=== PATIENT | female | born 1995 | race African-American/Black ===

== ENCOUNTER 2016-07-11 06:49 | Emergency (ER) | payer BC, OTHER ==
[~2016-07-11] VITALS: Ht 162.6 cm; Wt 60.0 kg
[~2016-07-11 06:49] MED LIST: ALBU8I INH
[2016-07-11 06:51] VITALS: BP 119/76; PULSE 63; RESP 16; TEMP 98.1; O2SAT 100
--- NOTE | 2016-07-11 07:24 | PD ---
HPI Chief Complaint: Related Problem Time Seen by Provider: 07:14 Travel History International Travel<30 days: No Contact w/Intl Traveler<30days: No Traveled to known affect area: No History of Present Illness HPI 21yo F who is is here with vaginal bleeding and lower abdominal cramping today. Pt states LMP is 1 month ago and found out she was last week. Denies any fever, chest pain, sob, urinary complaints. PFSH Past Medical History Asthma: Yes ?: Past Surgical History Surgical History: No Previous Surgery Social History Alcohol Use: No Tobacco Use: No Substance Use: No Allergies-Medications (Allergen,Severity, Reaction): Coded Allergies: Amoxicillin (Verified Allergy, Severe, 07/11/16) RASH Reported Meds & Prescriptions Reported Meds & Active Scripts Active Reported Proair Hfa 8.5 GM Inh (Albuterol Sulfate) 90 Mcg/Act Aer 2 Puff INH Q4-6H PRN 108 mcg/actuation Review of Systems Except as stated in HPI: all other systems reviewed are Neg Physical Exam Narrative GENERAL: 21yo F in mild distress. SKIN: Focused skin assessment warm/dry. HEAD: Atraumatic. Normocephalic. CARDIOVASCULAR: Regular rate and rhythm. No murmur appreciated. RESPIRATORY: No accessory muscle use. Clear to auscultation. Breath sounds equal bilaterally. GASTROINTESTINAL: Abdomen soft, +TTP lower abdomen. No rebound tenderness or guarding. PELVIC: +Blood in vaginal vault. Cervical os closed. No CMT or adnexal tenderness bilaterally. MUSCULOSKELETAL: No obvious deformities. No clubbing. No cyanosis. No edema. NEUROLOGICAL: Awake and alert. No obvious cranial nerve deficits. Motor grossly within normal limits. Normal speech. PSYCHIATRIC: Appropriate mood and affect; insight and judgment normal. Data Data Last Documented VS Vital Signs Date Time Temp Pulse Resp B/P Pulse Ox O2 Delivery O2 Flow Rate FiO2 07/11/16 09:24 78 18 114/73 99 Room Air 07/11/16 06:51 98.1 Orders Basic Metabolic Panel (Bmp) (07/11/16 07:20) Beta Hcg (Quant/Titer) (07/11/16 07:20) Complete Blood Count With Diff (07/11/16 07:20) Lipase (07/11/16 07:20) Prothrombin Time / Inr (Pt) (07/11/16 07:20) Act Partial Throm Time (Ptt) (07/11/16 07:20) Urinalysis - C+S If Indicated (07/11/16 07:20) Iv Access Insert/Monitor (07/11/16 07:20) Ecg Monitoring (07/11/16 07:20) Oximetry (07/11/16 07:20) Sodium Chloride 0.9% Flush (Ns Flush) (07/11/16 07:30) Type And Screen (07/11/16 07:20) Ondansetron Inj (Zofran Inj) (07/11/16 07:30) Acetaminophen (Tylenol) (07/11/16 07:30) Us Pelvis (Ques Pr/Ect)W Trans (07/11/16 ) Labs Laboratory Tests Test 07/11/16 07:35 White Blood Count 7.4 TH/MM3 Red Blood Count 3.94 MIL/MM3 Hemoglobin 11.7 GM/DL Hematocrit 35.0 % Mean Corpuscular Volume 88.9 FL Mean Corpuscular Hemoglobin 29.8 PG Mean Corpuscular Hemoglobin 33.6 % Concent Red Cell Distribution Width 14.5 % Platelet Count 297 TH/MM3 Mean Platelet Volume 8.9 FL Neutrophils (%) (Auto) 55.9 % Lymphocytes (%) (Auto) 35.2 % Monocytes (%) (Auto) 6.4 % Eosinophils (%) (Auto) 1.5 % Basophils (%) (Auto) 1.0 % Neutrophils # (Auto) 4.1 TH/MM3 Lymphocytes # (Auto) 2.6 TH/MM3 Monocytes # (Auto) 0.5 TH/MM3 Eosinophils # (Auto) 0.1 TH/MM3 Basophils # (Auto) 0.1 TH/MM3 CBC Comment DIFF FINAL Differential Comment Prothrombin Time 10.5 SEC Prothromb Time International 1.0 RATIO Ratio Activated Partial 25.7 SEC Thromboplast Time Urine Color YELLOW Urine Turbidity CLEAR Urine pH 6.0 Urine Specific [place] 1.024 Urine Protein NEG mg/dL Urine Glucose (UA) NEG mg/dL Urine Ketones NEG mg/dL Urine Occult Blood LARGE Urine Nitrite NEG Urine Bilirubin NEG Urine Urobilinogen 2.0 MG/DL Urine Leukocyte Esterase NEG Urine RBC /hpf Urine WBC LESS THAN 1 /hpf Urine Squamous Epithelial 2 /hpf Cells Urine Mucus FEW /lpf Microscopic Urinalysis Comment CULT NOT INDICATED Sodium Level 141 MEQ/L Potassium Level 4.2 MEQ/L Chloride Level 108 MEQ/L Carbon Dioxide Level 25.1 MEQ/L Anion Gap 8 MEQ/L Blood Urea Nitrogen 12 MG/DL Creatinine 0.97 MG/DL Estimat Glomerular Filtration 89 ML/MIN Rate Random Glucose 83 MG/DL Calcium Level 8.4 MG/DL Lipase 213 U/L Human Chorionic Gonadotropin, 5828 MIU/ML Quant Blood Type O POSITIVE Antibody Screen NEGATIVE Blood Bank Comment MDM Medical Decision Making Medical Screen Exam Complete: Yes Emergency Medical Condition: Yes Differential Diagnosis Threatened vs. complete vs. ectopic Narrative Course 21yo F with vaginal bleeding. Pt is O positive. LMP 4 weeks ago. Labs reviewed, no leukocytosis. H/H stable. bHCG 5828. UA showed large blood. TVUS showed no evidence of intrauterine gestation. Complex mixed echogenicity that is nonspecific in right ovary. Tiny cyst in left ovary. Impression is complete . Instructed pt to follow up with OBGYN for repeat bHCG to make sure it goes down. Return precautions given. Diagnosis Primary Impression: Complete Patient Instructions: General Instructions Departure Forms: Tests/Procedures Additional Instructions: Please follow up with OBGYN in 2 days to ensure hormone is trending down. Return to the ED if symptoms worsen. Med/Other Pt SpecificInfo: Prescription(s) given Scripts Acetaminophen (Acetaminophen Extra Strength)500 Mg Evo173 Mg PO Q6H PRN (PAIN SCALE 1 TO 4) #20 TAB Ref 0 Prov:Siena Ruano DO 07/11/16 Disposition: 01 DISCHARGE HOME Condition: Stable Siena Ruano DO Jul 11, 2016 07:24
[2016-07-11 07:25] VITALS: O2SAT 99
[2016-07-11] MEDS ORDERED: ONDANSETRON HCL 4 MG/2 ML VIAL IV PUSH ONE (07:30)
[2016-07-11] MEDS ORDERED: ACETAMINOPHEN 325 MG TAB PO ONE (07:30)
[2016-07-11] MEDS ORDERED: SODIUM CHLORIDE 0.9% FLUSH 10 ML FLUSH IV FLUSH PRN (07:30)
[2016-07-11 07:55] LABS: AUTOMATED NEUTROPHIL # 4.1 TH/MM3 (1.8-7.7); BASOPHIL # 0.1 TH/MM3 (0-0.2); EOSINOPHIL # 0.1 TH/MM3 (0-0.4); EOSINOPHIL % 1.5 % (0.0-4.0); HEMO FLAGS DIFF FINAL; LYMPH % 35.2 % (9.0-44.0); LYMPHOCYTE # 2.6 TH/MM3 (1.0-4.8); MEAN CELL VOLUME 88.9 FL (80.0-100.0); MEAN CORPUSCULAR HEMOGLOBIN 29.8 PG (27.0-34.0); MEAN CORPUSCULAR HGB CONC 33.6 % (32.0-36.0); MONO % 6.4 % (0.0-8.0); NEUT % 55.9 % (16.0-70.0); PLATELET COUNT 297 TH/MM3 (150-450); RED BLOOD COUNT 3.94 MIL/MM3 (4.00-5.30); RED CELL DISTRIBUTION WIDTH 14.5 % (11.6-17.2); WHITE BLOOD COUNT 7.4 TH/MM3 (4.0-11.0)
[2016-07-11 08:04] LABS: APTT (PATIENT) 25.7 SEC (24.3-30.1); PROTHROMBIN TIME - PATIENT 10.5 SEC (9.8-11.6)
[2016-07-11 08:07] LABS: BLOOD, URINE LARGE (NEG); COMMENT (UR) CULT NOT INDICATED; CULTURE IF INDICATED CULT NOT INDICATED; GLUCOSE,URINE NEG (NEG); KETONE, URINE NEG (NEG); MUCUS URINE FEW /lpf (OCC); NITRITE,URINE NEG (NEG); SQUAMOUS EPITHELIAL CELL URINE 2 /hpf (0-5); URINE COLOR YELLOW (YELLW/STRAW)
[2016-07-11 08:15] LABS: BICARBONATE 25.1 MEQ/L (21.0-32.0); POTASSIUM 4.2 MEQ/L (3.5-5.1)
[2016-07-11] MEDS ORDERED: ALBUAER3 INH (09:01)
[2016-07-11 09:24] VITALS: BP 114/73; PULSE 78; RESP 18; O2SAT 99
--- NOTE | 2016-07-11 09:38 | RADRPT ---
EXAM DATE/TIME: 07/11/2016 08:47 [facility] COMPARISON: No previous studies available for comparison. INDICATIONS : Vaginal bleeding and pelvic pain. LAB(S): Beta-hC,828 MEDICAL HISTORY : . Vaginal bleeding. Abdominal cramping. SURGICAL HISTORY : None. ENCOUNTER: Initial ACUITY: 1 day PAIN SCORE: 4/10 LOCATION: Bilateral pelvis MEASUREMENTS: UTERUS: 8.2 x 4.0 x 6.3 cm ENDOMETRIAL STRIPE: 3 mm RIGHT OVARY: 3.2 x 2.4 x 3.6 cm LEFT OVARY: 3.9 x 1.6 x 3.0 cm FREE FLUID: Yes cul-de-sac. CROWN RUMP LENGTH: Not visualized. = WKS DAYS FHR: Not visualized. BPM FINDINGS: UTERUS: No intrauterine gestation. RIGHT OVARY: Complex mixed echogenicity slightly greater than 2 cm area within the right ovary, nonspecific. LEFT OVARY: Tiny simple appearing cyst MISCELLANEOUS: Small volume of free fluid CONCLUSION: No evidence of intrauterine gestation. Earnest Mccormick MD on July 11, 2016 at 9:31 Board Certified Radiologist. This report was verified electronically.
[2016-07-11] MEDS ORDERED: ACET500T36 PO (09:57)
== END 2016-07-11 10:27 | disposition home or self-care (01) ==
LOC: NEPC 06:49
DX: O03.9 Complete or unspecified spontaneous abortion without complication (principal); R10.30 Lower abdominal pain, unspecified
CPT/HCPCS: 76700; 76817; 80048; 81001; 83690; 84702; 85025; 85610; 85730; 86850; 86900; 86901; 96374; 99284; J2405

== ENCOUNTER 2016-07-15 09:39 | Emergency (ER) | payer OTHER ==
[~2016-07-15] VITALS: Ht 162.6 cm; Wt 61.5 kg
[~2016-07-15 09:39] MED LIST changes: +ACET500T36 PO; -ALBU8I INH; +ALBUAER3 INH
[2016-07-15 09:41] VITALS: BP 110/55; PULSE 120; RESP 28; TEMP 97.8; O2SAT 99
[2016-07-15] MEDS ORDERED: SODIUM CHLOR 0.9% 1000 ML INJ 1,000 ML IV SCH (10:28)
--- NOTE | 2016-07-15 10:37 | PD ---
HPI Chief Complaint: Abdominal Pain Time Seen by Provider: 10:08 Travel History International Travel<30 days: No Contact w/Intl Traveler<30days: No Traveled to known affect area: No History of Present Illness HPI 21-year-old female 1 para 0 last menstruation period a month ago complains of severe abdominal pain. Patient was seen in emergency room 4 days ago for vaginal bleeding and low abdominal pain. Beta-hCG 5828. Pelvic ultrasound shows no evidence of intrauterine . Patient was discharged home with instruction to follow-up local [employer]. Patient states that she is not having abdominal pain yesterday and got worse today. Patient denies any nausea vomiting diarrhea. Patient denies any dysuria or frequency. Patient states that the vaginal bleeding stopped 4 days ago. On a scale of 1-10 the pain is a 10. PFSH Past Medical History Hx Anticoagulant Therapy: No Asthma: Yes Cardiovascular Problems: No Chemotherapy: No Cerebrovascular Accident: No Diabetes: No Respiratory: Yes (ASTHMA) ?: Unknown LMP: HAD A MISCARRIAGE ON SUNDAY Social History Alcohol Use: No Tobacco Use: No Substance Use: No Allergies-Medications (Allergen,Severity, Reaction): Coded Allergies: Amoxicillin (Verified Allergy, Severe, 07/15/16) RASH Reported Meds & Prescriptions Reported Meds & Active Scripts Active Acetaminophen Extra Strength (Acetaminophen) 500 Mg Tab 500 Mg PO Q6H PRN Reported Proair Hfa 8.5 GM Inh (Albuterol Sulfate) 90 Mcg/Act Aer 2 Puff INH Q4-6H PRN 108 mcg/actuation Review of Systems General / Constitutional: No: Fever Eyes: No: Visual changes HENT: No: Headaches Cardiovascular: No: Chest Pain or Discomfort Respiratory: No: Shortness of Breath Gastrointestinal: Positive: Abdominal Pain Genitourinary: No: Dysuria Musculoskeletal: No: Pain Skin: No Rash Neurologic: No: Weakness Psychiatric: No: Depression Endocrine: No: Polydipsia Hematologic/Lymphatic: No: Easy Bruising Physical Exam Narrative GENERAL: Well-nourished, well-developed patient. SKIN: Focused skin assessment warm/dry. HEAD: Normocephalic. EYES: No scleral icterus. No injection or drainage. NECK: Supple, trachea midline. No JVD or lymphadenopathy. CARDIOVASCULAR: Regular rate and rhythm without murmurs, gallops, or rubs. RESPIRATORY: Breath sounds equal bilaterally. No accessory muscle use. GASTROINTESTINAL: Abdomen nondistended. Patient has moderate diffuse tenderness over the abdomen with positive rebound and guarding. MUSCULOSKELETAL: No cyanosis, or edema. BACK: Nontender without obvious deformity. No CVA tenderness. Neurologic exam normal. Data Data Last Documented VS Vital Signs Date Time Temp Pulse Resp B/P Pulse Ox O2 Delivery O2 Flow Rate FiO2 07/15/16 10:42 97 Nasal Cannula 2 07/15/16 10:03 18 07/15/16 09:41 97.8 120 110/55 Orders Complete Blood Count With Diff (07/15/16 10:28) Comprehensive Metabolic Panel (07/15/16 10:28) Prothrombin Time / Inr (Pt) (07/15/16 10:28) Act Partial Throm Time (Ptt) (07/15/16 10:28) Iv Access Insert/Monitor (07/15/16 10:28) Ecg Monitoring (07/15/16 10:28) Oximetry (07/15/16 10:28) Sodium Chlor 0.9% 1000 Ml Inj (Ns 1000 M (07/15/16 10:28) Type And Screen (07/15/16 10:28) Red Blood Cells (Rbc) (07/15/16 10:28) Us Pelvis (Ques Pr/Ect)W Trans (07/15/16 10:31) Beta Hcg (Quant/Titer) (07/15/16 10:48) MDM Medical Decision Making Medical Screen Exam Complete: Yes Emergency Medical Condition: Yes Differential Diagnosis Differential diagnosis including ruptured ectopic , UTI, pyelonephritis , nephrolithiasis, colitis, appendicitis. Narrative Course 21-year-old female with lower abdominal pain. Beta-hCG positive and pelvic ultrasound done 4 days ago did not show any intrauterine . Normal saline solution 1 L IV bolus. Blood type and cross. ED OB was called immediately. Stat pelvic ultrasound ordered. Diagnosis Primary Impression: Ruptured ectopic Admitting Information Admitting Physician Requests: Admit Cody Whitlock MD Jul 15, 2016 10:37
[2016-07-15 10:42] VITALS: O2SAT 97
[2016-07-15 11:09] LABS: AUTOMATED NEUTROPHIL # 22.4 TH/MM3 (1.8-7.7); BASOPHIL % 0.1 % (0.0-2.0); HEMATOCRIT 31.4 % (35.0-46.0); LYMPH % 7.2 % (9.0-44.0); LYMPHOCYTE # 1.8 TH/MM3 (1.0-4.8); MEAN CORPUSCULAR HEMOGLOBIN 28.8 PG (27.0-34.0); MEAN CORPUSCULAR HGB CONC 31.6 % (32.0-36.0); MONO % 3.2 % (0.0-8.0); NEUT % 89.5 % (16.0-70.0); PLATELET COUNT 405 TH/MM3 (150-450); RED BLOOD COUNT 3.44 MIL/MM3 (4.00-5.30); RED CELL DISTRIBUTION WIDTH 14.5 % (11.6-17.2)
[2016-07-15 11:11] LABS: HEMO FLAGS AUTO DIFF
[2016-07-15 11:25] LABS: APTT (PATIENT) 20.9 SEC (24.3-30.1); PROTHROMBIN TIME - PATIENT 11.2 SEC (9.8-11.6)
--- NOTE | 2016-07-15 11:31 | RADRPT ---
EXAM DATE/TIME: 07/15/2016 10:41 [facility] COMPARISON: US PELVIS (QUEST PREG/ECTOPIC) W/TRANSVAG, July 11, 2016, 8:47. INDICATIONS : Severe pelvic pain and bleeding. LAB(S): Beta-hC,828 from 07/11/16 MEDICAL HISTORY : . Asthma. SURGICAL HISTORY : None. ENCOUNTER: Subsequent ACUITY: 3 days PAIN SCORE: 10/10 LOCATION: Bilateral pelvis MEASUREMENTS: LEFT OVARY: 3.9 x 2.1 x 2.4 cm UTERUS: 9.9 x 4.4 x 5.7 cm ENDOMETRIAL STRIPE: 9 mm RIGHT OVARY: Non-visualized FREE FLUID: Yes Bilateral adnexas, cul-de-sac CROWN RUMP LENGTH: Non-visualized FINDINGS: This is a significantly abnormal exam with significant changes as compared to the exam of July 11. UTERUS: The myometrium has homogeneous echotexture without mass. No evidence of intrauterine . RIGHT OVARY: Not visualized. LEFT OVARY: Ovary contains no mass or significant cystic lesion. MISCELLANEOUS: There is a large amount of free fluid identified within the pelvis which has significantly increased as compared to the prior exam. There is a large amount of a vascular appearing echogenic debris ident ified within the posterior cul-de-sac which is also a new finding and highly concerning for a rupture d ectopic. The referring physician will be made when these findings. CONCLUSION: Significantly abnormal exam with multiple new findings of large amount of free fluid as well as a vas cular echogenic debris identified within the posterior cul-de-sac concerning for ruptured ectopic pre gnancy. No evidence of intrauterine . A normal right ovary is not visualized.. Adriane Archer MD on July 15, 2016 at 11:23 Board Certified Radiologist. This report was verified electronically.
[2016-07-15 11:34] LABS: ALKALINE PHOSPHATASE 49 U/L (45-117); TOTAL BILIRUBIN ADULT 0.4 MG/DL (0.2-1.0)
[2016-07-15 11:37] LABS: ALT (GPT) 18 U/L (9-42); ANION GAP 17 MEQ/L (5-15); AST (GOT) 21 U/L (16-38); BICARBONATE 19.3 MEQ/L (21.0-32.0); BLOOD UREA NITROGEN 18 MG/DL (7-18); CHLORIDE 102 MEQ/L (98-107); GLOMERULAR FILTRATION RATE 50 ML/MIN (>89); POTASSIUM 3.6 MEQ/L (3.5-5.1); SODIUM (NA) 138 MEQ/L (136-145)
[2016-07-15] MEDS ORDERED: LACTATED RINGER'S 1000 ML INJ 1,000 ML IV SCH (11:41)
[2016-07-15] MEDS ORDERED: SODIUM CHLORIDE 0.9% FLUSH 10 ML FLUSH IV FLUSH PRN (11:45)
[2016-07-15] MEDS ORDERED: CITRIC ACID-SODIUM CITRATE LIQ 30 ML UDC PO SCH (11:45)
[2016-07-15 11:48] LABS: BANDS 5 % (0-6); BETA HCG QUANT 4377 MIU/ML (0-5); NEUTROPHIL # MANUAL DIFF 22.3 TH/MM3 (1.8-7.7); POLYS (SEG NEUTROPHILS) 84 % (16-70); WBC DIFF SAMPLE 100
[2016-07-15 11:50] LABS: OVALOCYTES 1+ (NORMAL); PLATELET ESTIMATE SMEAR NORMAL (NORMAL); PLATELET MORPHOLOGY NORMAL (NORMAL); SCAN/DIFF FINAL DIFF MANUAL
[2016-07-15] MEDS ORDERED: ONDANSETRON HCL 4 MG/2 ML VIAL IV PUSH ONE (12:00)
[2016-07-15] MEDS ORDERED: PROPOFOL 200 MG/20 ML AMP IV ONE (12:00)
[2016-07-15] MEDS ORDERED: NORMOSOL R INJ 3,000 ML IV ONE (12:00)
[2016-07-15] MEDS ORDERED: PHENYLEPH/NS 1000 MCG/10 ML SYR IV ONE (12:00)
[2016-07-15] MEDS ORDERED: NEOSTIGMINE 3 MG/3 ML SYR IV ONE (12:00)
[2016-07-15] MEDS ORDERED: KETAMINE HCL 500 MG/5 ML VIAL ONE (12:04)
--- NOTE | 2016-07-15 12:08 | HHI.HP ---
HPI Chief Complaint abdominal pain Date Seen: Jul 15, 2016 Time Seen: 11:02 Travel History International Travel<30 Days: No Contact w/Intl Traveler<30Days: No Known Affected Area: No History of Present Illness HPI This is a 21y/o with LMP about 1 month ago who initially presented to the ED on 07/11/16 and was diagnosed with a complete ab with Hcg of 5828. Pt presents again today with excruciating pain in her lower abdominal associated with nausea/vomiting. She states the pain is severe 10/10 with no alleviating factors. Last solid food intake was 8pm, has been sipping water and gatorade since 0300. Para: 0 : 1 Last Menstrual Period: Jun 14, 2016 Miscarriage: 0 : 0 History Past Medical History Narrative Medical Asthma Past Surgical History Surgical History: No Previous Surgery Family History Family History: Negative Social History Alcohol Use: No Tobacco Use: No Substance Abuse: No Allergies-Medications (Allergen,Severity, Reaction): Coded Allergies: Amoxicillin (Verified Allergy, Severe, 07/15/16) RASH Home Meds Active Scripts Acetaminophen (Acetaminophen Extra Strength)500 Mg Nto036 Mg PO Q6H PRN (PAIN SCALE 1 TO 4) #20 TAB Ref 0 Prov:Siena Ruano DO 07/11/16 Reported Medications Albuterol 8.5 GM Inh (Proair Hfa 8.5 GM Inh)90 Mcg/Act Aer2 Puff INH Q4-6H PRN ( SHORTNESS OF BREATH) #1 INHALER Ref 0 108 mcg/actuation 07/11/16 Review of Systems Except as stated in HPI: all other systems reviewed are Neg Physical Exam Vital Signs Date Time Temp Pulse Resp B/P Pulse Ox O2 Delivery O2 Flow Rate FiO2 07/15/16 10:42 97 Nasal Cannula 2 07/15/16 10:03 18 07/15/16 09:41 97.8 120 28 110/55 99 Room Air Narrative GENERAL: Well-nourished, well-developed patient. SKIN: Warm and dry. HEAD: Normocephalic and atraumatic. EYES: No scleral icterus. No injection or drainage. ENT: No nasal drainage noted. Mucous membranes pink. Airway patent. NECK: Supple, trachea midline. No JVD. CARDIOVASCULAR: Regular rate and rhythm without murmurs, gallops, or rubs. RESPIRATORY: Breath sounds equal bilaterally. No accessory muscle use. BREASTS: Bilateral exam showed no masses , no retractions, no nipple discharge. ABDOMEN/GI: +bs, + rebound/guarding, tender to minimal palpation GENITOURINARY: deferred due to pt discomfort EXTREMITIES: No cyanosis or edema. BACK: Nontender without obvious deformity. No CVA tenderness. NEUROLOGICAL: Awake and alert. Motor and sensory grossly within normal limits. Five out of 5 muscle strength in all muscle groups. Normal speech. U/s official 07/15/16 c/w ruptured ectopic with free fluid and clot in the cul d sac Data Data Vital Signs Reviewed: Yes Orders Complete Blood Count With Diff (07/15/16 10:28) Comprehensive Metabolic Panel (07/15/16 10:28) Prothrombin Time / Inr (Pt) (07/15/16 10:28) Act Partial Throm Time (Ptt) (07/15/16 10:28) Iv Access Insert/Monitor (07/15/16 10:28) Ecg Monitoring (07/15/16 10:28) Oximetry (07/15/16 10:28) Sodium Chlor 0.9% 1000 Ml Inj (Ns 1000 M (07/15/16 10:28) Type And Screen (07/15/16 10:28) Red Blood Cells (Rbc) (07/15/16 10:28) Us Pelvis (Ques Pr/Ect)W Trans (07/15/16 10:31) Beta Hcg (Quant/Titer) (07/15/16 10:48) Admit Order (Ed Use Only) (07/15/16 11:06) Diet Npo (07/15/16 Lunch) ^ Preps (07/15/16 11:41) Sodium Chloride 0.9% Flush (Ns Flush) (07/15/16 11:45) Citric Acid-Sodium Citrate Liq (Bicitra (07/15/16 11:45) Lactated Ringer's 1000 Ml Inj (Lr 1000 M (07/15/16 11:41) Sodium Chloride 0.9% Flush (Ns Flush) (07/15/16 21:00) Cefazolin Inj (Ancef Inj) (07/15/16 12:00) Labs Laboratory Tests Test 07/15/16 10:38 White Blood Count 25.0 TH/MM3 Red Blood Count 3.44 MIL/MM3 Hemoglobin 9.9 GM/DL Hematocrit 31.4 % Mean Corpuscular Volume 91.0 FL Mean Corpuscular Hemoglobin 28.8 PG Mean Corpuscular Hemoglobin 31.6 % Concent Red Cell Distribution Width 14.5 % Platelet Count 405 TH/MM3 Mean Platelet Volume 9.7 FL Neutrophils (%) (Auto) 89.5 % Lymphocytes (%) (Auto) 7.2 % Monocytes (%) (Auto) 3.2 % Eosinophils (%) (Auto) 0.0 % Basophils (%) (Auto) 0.1 % Neutrophils # (Auto) 22.4 TH/MM3 Lymphocytes # (Auto) 1.8 TH/MM3 Monocytes # (Auto) 0.8 TH/MM3 Eosinophils # (Auto) 0.0 TH/MM3 Basophils # (Auto) 0.0 TH/MM3 CBC Comment AUTO DIFF Differential Total Cells 100 Counted Neutrophils % (Manual) 84 % Band Neutrophils % 5 % Lymphocytes % 6 % Monocytes % 5 % Neutrophils # (Manual) 22.3 TH/MM3 Differential Comment FINAL DIFF MANUAL Platelet Estimate NORMAL Platelet Morphology Comment NORMAL Ovalocytes 1+ Prothrombin Time 11.2 SEC Prothromb Time International 1.0 RATIO Ratio Activated Partial 20.9 SEC Thromboplast Time Sodium Level 138 MEQ/L Potassium Level 3.6 MEQ/L Chloride Level 102 MEQ/L Carbon Dioxide Level 19.3 MEQ/L Anion Gap 17 MEQ/L Blood Urea Nitrogen 18 MG/DL Creatinine 1.58 MG/DL Estimat Glomerular Filtration 50 ML/MIN Rate Random Glucose 259 MG/DL Calcium Level 8.3 MG/DL Total Bilirubin 0.4 MG/DL Aspartate Amino Transf 21 U/L (AST/SGOT) Alanine Aminotransferase 18 U/L (ALT/SGPT) Alkaline Phosphatase 49 U/L Total Protein 6.3 GM/DL Albumin 3.1 GM/DL Human Chorionic Gonadotropin, 4377 MIU/ML Quant Blood Type O POSITIVE Antibody Screen NEGATIVE Crossmatch Leukocyte-Reduced Red Blood Cells Blood Bank Comment Laboratory Tests Test 07/15/16 10:38 White Blood Count 25.0 TH/MM3 Red Blood Count 3.44 MIL/MM3 Hemoglobin 9.9 GM/DL Hematocrit 31.4 % Mean Corpuscular Volume 91.0 FL Mean Corpuscular Hemoglobin 28.8 PG Mean Corpuscular Hemoglobin 31.6 % Concent Red Cell Distribution Width 14.5 % Platelet Count 405 TH/MM3 Mean Platelet Volume 9.7 FL Neutrophils (%) (Auto) 89.5 % Lymphocytes (%) (Auto) 7.2 % Monocytes (%) (Auto) 3.2 % Eosinophils (%) (Auto) 0.0 % Basophils (%) (Auto) 0.1 % Neutrophils # (Auto) 22.4 TH/MM3 Lymphocytes # (Auto) 1.8 TH/MM3 Monocytes # (Auto) 0.8 TH/MM3 Eosinophils # (Auto) 0.0 TH/MM3 Basophils # (Auto) 0.0 TH/MM3 CBC Comment AUTO DIFF Differential Total Cells 100 Counted Neutrophils % (Manual) 84 % Band Neutrophils % 5 % Lymphocytes % 6 % Monocytes % 5 % Neutrophils # (Manual) 22.3 TH/MM3 Differential Comment FINAL DIFF MANUAL Platelet Estimate NORMAL Platelet Morphology Comment NORMAL Ovalocytes 1+ Prothrombin Time 11.2 SEC Prothromb Time International 1.0 RATIO Ratio Activated Partial 20.9 SEC Thromboplast Time Sodium Level 138 MEQ/L Potassium Level 3.6 MEQ/L Chloride Level 102 MEQ/L Carbon Dioxide Level 19.3 MEQ/L Anion Gap 17 MEQ/L Blood Urea Nitrogen 18 MG/DL Creatinine 1.58 MG/DL Estimat Glomerular Filtration 50 ML/MIN Rate Random Glucose 259 MG/DL Calcium Level 8.3 MG/DL Total Bilirubin 0.4 MG/DL Aspartate Amino Transf 21 U/L (AST/SGOT) Alanine Aminotransferase 18 U/L (ALT/SGPT) Alkaline Phosphatase 49 U/L Total Protein 6.3 GM/DL Albumin 3.1 GM/DL Human Chorionic Gonadotropin, 4377 MIU/ML Quant Blood Type O POSITIVE Antibody Screen NEGATIVE Crossmatch Leukocyte-Reduced Red Blood Cells Blood Bank Comment Laboratory Tests Test 07/15/16 10:38 White Blood Count 25.0 Red Blood Count 3.44 Hemoglobin 9.9 Hematocrit 31.4 Mean Corpuscular Volume 91.0 Mean Corpuscular Hemoglobin 28.8 Mean Corpuscular Hemoglobin 31.6 Concent Red Cell Distribution Width 14.5 Platelet Count 405 Mean Platelet Volume 9.7 Neutrophils (%) (Auto) 89.5 Lymphocytes (%) (Auto) 7.2 Monocytes (%) (Auto) 3.2 Eosinophils (%) (Auto) 0.0 Basophils (%) (Auto) 0.1 Neutrophils # (Auto) 22.4 Lymphocytes # (Auto) 1.8 Monocytes # (Auto) 0.8 Eosinophils # (Auto) 0.0 Basophils # (Auto) 0.0 CBC Comment AUTO DIFF Differential Total Cells 100 Counted Neutrophils % (Manual) 84 Band Neutrophils % 5 Lymphocytes % 6 Monocytes % 5 Neutrophils # (Manual) 22.3 Differential Comment FINAL DIFF MANUAL Platelet Estimate NORMAL Platelet Morphology Comment NORMAL Ovalocytes 1+ Prothrombin Time 11.2 Prothromb Time International 1.0 Ratio Activated Partial 20.9 Thromboplast Time Sodium Level 138 Potassium Level 3.6 Chloride Level 102 Carbon Dioxide Level 19.3 Anion Gap 17 Blood Urea Nitrogen 18 Creatinine 1.58 Estimat Glomerular Filtration 50 Rate Random Glucose 259 Calcium Level 8.3 Total Bilirubin 0.4 Aspartate Amino Transf 21 (AST/SGOT) Alanine Aminotransferase 18 (ALT/SGPT) Alkaline Phosphatase 49 Total Protein 6.3 Albumin 3.1 Human Chorionic Gonadotropin, 4377 Quant Blood Type O POSITIVE Antibody Screen NEGATIVE Crossmatch Leukocyte-Reduced Red Blood Cells Blood Bank Comment Assessment/Plan Problem List: (1) Ruptured ectopic Plan: Admit for Laparoscopic Salpingectomy/Salpingostomy 2 units of PRBCs order by ED MD Assessment and Plan discussed surgery in depth with the patient counseled about risks including but not limited to: infection, bleeding, bowel/ bladder injury, wound separation/infection, possibility of a blood transfusion Pt signed consent forms all questions answered Discussed case with Dr. Dale Discharge Planning Likely d/c home within 23hr Teetee Perry MD Jul 15, 2016 12:08
[2016-07-15] MEDS ORDERED: DEXAMETHASONE SOD PHOS 4 MG/ML VIAL ONE (12:26)
[2016-07-15] MEDS ORDERED: ACETAMINOPHEN 1000 MG/100 ML VIAL IV ONE (12:26)
[2016-07-15] MEDS ORDERED: BUPIVACAINE HCL PF 0.5% 30 ML VIAL ONE (12:26)
[2016-07-15] MEDS ORDERED: MIDAZOLAM HCL 2 MG/2 ML VIAL ONE (12:26)
[2016-07-15] MEDS ORDERED: ceFAZolin INJ 1,000 MG VIAL ONE (12:27)
[2016-07-15] MEDS ORDERED: SODIUM CHLORIDE 0.9% 20 ML VIAL ONE (12:27)
[2016-07-15] MEDS ORDERED: FAMOTIDINE 20 MG/2 ML VIAL ONE (12:27)
[2016-07-15] MEDS ORDERED: VASOPRESSIN INJ 20 UNITS/ML VIAL ONE (12:27)
[2016-07-15] MEDS ORDERED: IBUP-232 PO (14:00)
[2016-07-15] MEDS ORDERED: PERC5TAB12 PO (14:01)
--- NOTE | 2016-07-15 14:01 | HHI.DCPOC ---
Discharge Care Plan Diagnosis: (1) Ruptured ectopic Your Health Problems Are: Incisions/drains Report Symptoms to Your Doctor -Temperate above 100.5 degrees -Redness, of incision or excessive or foul smelling drainage -Unusual pain or calf pain -Increased vaginal bleeding -Painful or difficulty urinating -Feelings of extreme sadness or anxiety after 2 weeks Goals to Promote Your Health * To prevent worsening of your condition and complications * To maintain your health at the optimal level Directions to Meet Your Goals Take your medications as prescribed Follow your dietary instruction Follow activity as directed Ensure plenty of rest for recovery Drink fluids for hydration Keep your appointments as scheduled Take your immunizations and boosters as scheduled If your symptoms worsen call your PCP, if no PCP go to Urgent Care Center or Emergency Room Smoking is Dangerous to Your Health. Avoid second hand smoke Call the 24-hour crisis hotline for domestic abuse at Elaine Dale MD Jul 15, 2016 14:01
--- NOTE | 2016-07-15 14:08 | HHI.PR ---
Immediate Post Op Note Procedure Date: Jul 15, 2016 Pre Op Diagnosis: (1) Ruptured ectopic Post Op Diagnosis: (1) Ruptured ectopic (2) Ectopic of ovary Surgeon: Elaine Dale Strategy Execution Consultant(s): staff Procedure: Laparoscopic right oophorectomy, exam under anesthesia Findings: Hemoperitoneum, approx 800ml of blood in abdomen. normal liver edge and normal appendix. ruptured right ovarian ectopic . normal left ovary. normal bilateral ovarian tubes. Complications: none Specimen(s) removed: right ovary Estimated blood loss: 800ml Anesthesia: General Drains: None Fluids: 2600 IVF Patient to: PACU Patient Condition: Good Elaine Dale MD Jul 15, 2016 14:08
[2016-07-15] MEDS ORDERED: fentaNYL CITRATE 250 MCG/5 ML AMP ONE (14:22)
[2016-07-15] MEDS ORDERED: *MEPERIDINE 25 MG INJ VIAL PERIprocedural Use ONLY ONE (14:28)
[2016-07-15 14:40] LABS: HEMATOCRIT 23.5 % (35.0-46.0)
[2016-07-15] MEDS ORDERED: OXYC1TAB63 PO (14:56)
[2016-07-15] MEDS ORDERED: medroxyPROGESTERone ACETATE SUSP 150 MG/ML SYRINGE IM ONE (15:00)
[2016-07-15 15:15] VITALS: BP 133/78; PULSE 85; RESP 16; TEMP 97.6; O2SAT 97
[2016-07-15] MEDS ORDERED: *morphine SULFATE 8 MG/ML PERIprocedure ONLY ONE (15:19)
[2016-07-15] MEDS ORDERED: SODIUM CHLORIDE 0.9% FLUSH 10 ML FLUSH IV FLUSH SCH (21:00)
--- NOTE | 2016-07-18 09:24 | MP ---
cc: ELAINE DALE MD DATE OF SURGERY 07/15/2016 SURGEON Elaine Dale MD PREOPERATIVE DIAGNOSIS Ruptured ectopic . DIAGNOSIS Ruptured right ovarian ectopic . PROCEDURE PERFORMED Exam under anesthesia, laparoscopic right oophorectomy. INDICATIONS The patient is a 21-year-old G1 who presented to the emergency room with complaints of abdominal pain. She had previous been seen four days prior with a positive beta hCG, vaginal bleeding and was presumed to have had a miscarriage. The patient states that over the last week, she had had abdominal pain. She was soft care at her formerly [facility] clinic which was when she found out that she was . She has been inconsistently taking her control pills. She missed the first two days of her pill pack. She has taken twice in the last three weeks. On exam, she has rebound tenderness and guarding. Ultrasound is significant for hemoperitoneum. Right ovary not visualized in background complex fluid collection. ESTIMATED BLOOD LOSS 800 mL IV FLUIDS 2600 mL of lactated Ringer's. URINE OUTPUT 250 mL ANTIBIOTICS Ancef one gram IV given pre-incision. SPECIMEN Right ovary PROPHYLAXIS DVT prophylaxis, SCD's to bilateral lower extremities. COUNTS Correct x2. COMPLICATIONS None PROCEDURE IN DETAIL After review of informed consent, the patient was taken to the operating room where general anesthesia was administered without complication. She was placed in the dorsal lithotomy position in Tyler stirrups. The abdomen and perineum were prepped and draped in the normal sterile fashion. A Flores catheter was placed. A bivalve speculum was placed in the vagina. A single toothed tenaculum was placed on the anterior lip of the cervix. A Pango uterine manipulator was placed. The single toothed tenaculum was removed. The speculum was removed. Gloves were changed and attention was turned to the abdomen. Dictation interrupted Elaine Dale MD PE/MIRTHA /3:14 PM /9:07 AM
--- NOTE | 2016-07-24 14:41 | MP ---
cc: ELAINE DALE MD DATE OF SURGERY 07/15/2016 SURGEON Elaine Dale MD PREOPERATIVE DIAGNOSIS Ruptured ectopic . DIAGNOSIS Ruptured right ovarian ectopic . PROCEDURE PERFORMED Exam under anesthesia, laparoscopic right oophorectomy. INDICATIONS The patient is a 21-year-old G1 who presented to the emergency room with complaints of abdominal pain. She had previously been seen four days prior with a positive beta hCG, vaginal bleeding and was presumed to have had a miscarriage. The patient states that over the last week, she has had abdominal pain. She received care at her counts include 234 beds at the [facility] clinic which was when she found out that she was . She has been inconsistently taking her control pills. She missed the first two days of her pill pack. She has taken Plan B twice in the last three weeks. On exam, she has rebound tenderness and guarding. Ultrasound is significant for hemoperitoneum. Right ovary not visualized in background complex fluid collection. ESTIMATED BLOOD LOSS 800 mL IV FLUIDS 2600 mL of lactated Ringer's. URINE OUTPUT 250 mL ANTIBIOTICS Ancef one gram IV given pre-incision. SPECIMEN Right ovary PROPHYLAXIS DVT prophylaxis, SCD's to bilateral lower extremities. COUNTS Correct x2. COMPLICATIONS None PROCEDURE IN DETAIL After review of informed consent, the patient was taken to the operating room where general anesthesia was administered without complication. She was placed in the dorsal lithotomy position in Tyler stirrups. The abdomen and perineum were prepped and draped in the normal sterile fashion. A Flores catheter was placed. A bivalve speculum was placed in the vagina. A single toothed tenaculum was placed on the anterior lip of the cervix. A [employer] uterine manipulator was placed. The single toothed tenaculum was removed. The speculum was removed. Gloves were changed and attention was turned to the abdomen. 0.5% Marcaine was injected in the umbilical fold. A 5 mm skin incision was made. A 5 mm trocar was placed under direct visualization while tenting the abdomen. Then entry was confirmed and abdominal cavity was insufflated. A 12 mm left lower quadrant accessory trocar site was established under direct visualization. Copious amounts of blood and clot were noted in the abdomen. These were suctioned and irrigated to allow for visualization. The blood was noted to be up to the liver edge. After suction and irrigation, pelvic inspection was possible and a ruptured ovarian ectopic was noted. The right tube appeared normal with normal fimbriated ends. The left tube and ovary also appeared within normal limits. There were no pelvic adhesions. There was no intraabdominal scarring. The appendix appeared normal. The liver edge appeared normal as well. The right ovary was removed with the Harmonic. Good hemostasis was noted. The ovary was placed in a laparoscopic pouch and removed through the 12 mm port. The surgical sites were hemostatic. Further irrigation and suction was performed. The 12 mm port was then closed with the Erich-Fonseca device. The pneumoperitoneum was maintained. The abdomen was then desufflated. The trocars were removed after the abdomen was desufflated. The subcutaneous tissue was closed in an interrupted layer. The skin was closed with 3-0 Monocryl interrupted buried fashion. Steri-Strips were placed. Uterine manipulator was removed. The patient was placed in prone position. The patient tolerated the procedure well. She was not given a transfusion. The patient will be given Depo-provera before leaving the hospital. She will follow up in two weeks for a postoperative visit. Elaine Dale MD PE/MIRTHA /3:22 PM /2:25 PM MTDEffie
== END 2016-07-15 15:48 | disposition home or self-care (01) ==
LOC: NEPC 09:39 → NEDA 11:09 → UNDOADMIN 11:09 → NEPC 15:48 → UNDODISIN 22:00
DX: O00.20 Ovarian pregnancy without intrauterine pregnancy (principal); J45.909 Unspecified asthma, uncomplicated
CPT/HCPCS: 00840; 59151; 76700; 76817; 80053; 84702; 85007; 85014; 85018; 85027; 85610; 85730; 86850; 86900; 86901; 86920; 88305; 99285; J0131; J0690; J1050; J1100; J2175; J2250; J2270; J2370; J2405; J2710; J3010; J7030; J7120

== ENCOUNTER 2016-07-21 09:59 | Emergency (ER) | payer OTHER ==
[~2016-07-21] VITALS: Ht 162.6 cm; Wt 60.0 kg
[~2016-07-21 09:59] MED LIST changes: -ACET500T36 PO; +IBUP-232 PO; +OXYC1TAB63 PO; +PERC5TAB12 PO
[2016-07-21 10:01] VITALS: BP 106/59; PULSE 106; RESP 20; TEMP 98.6; O2SAT 100
[2016-07-21] MEDS ORDERED: SODIUM CHLOR 0.9% 1000 ML INJ 1,000 ML IV SCH (10:51)
[2016-07-21] MEDS ORDERED: SODIUM CHLORIDE 0.9% FLUSH 10 ML FLUSH IV FLUSH PRN (11:00)
[2016-07-21] MEDS ORDERED: ONDANSETRON HCL 4 MG/2 ML VIAL IVP ONE (11:00)
--- NOTE | 2016-07-21 11:01 | PD ---
HPI Chief Complaint: Abdominal Pain Time Seen by Provider: 10:56 Travel History International Travel<30 days: No Contact w/Intl Traveler<30days: No Traveled to known affect area: No History of Present Illness HPI Patient's 21-year-old female presented to emergency room for evaluation of left lower quadrant abdominal pain. Patient is status post right rectum he secondary to a ruptured ectopic on July 15, 2016. Pain has been fairly consistent after the surgery to the point where she was able to not take any narcotics on Sunday, yesterday she began to experience a sudden exacerbation of pain in her left lower quadrant. Has been utilizing oxycodone she was prescribed since that time. Patient reports the pain radiates from her abdomen into her left flank to her left back. She denies any dysuria, vaginal discharge, fevers, vomiting. She reports chills and nausea. Patient reports the pain is a 10 out of 10 and is unrelieved with previously prescribed medications. Her last bowel movement was yesterday, she states it was hard and pebble-like. His mother states that she has not had a bowel movement since she was admitted. PFSH Past Medical History Hx Anticoagulant Therapy: No Asthma: Yes Cardiovascular Problems: No Chemotherapy: No Cerebrovascular Accident: No Diabetes: No Respiratory: Yes (ASTHMA) ?: Not Social History Alcohol Use: No Tobacco Use: No Substance Use: No Allergies-Medications (Allergen,Severity, Reaction): Coded Allergies: Amoxicillin (Verified Allergy, Severe, 07/15/16) RASH Reported Meds & Prescriptions Reported Meds & Active Scripts Active Percocet (Oxycodone-Acetaminophen) 5-325 mg Tab 1 Tab PO Q4H PRN Ibuprofen 600 Mg Tab 600 Mg PO Q6H PRN Reported Oxycodone-Acetaminophen 5-325 mg Tab 1 Tab PO Q4H PRN Proair Hfa 8.5 GM Inh (Albuterol Sulfate) 90 Mcg/Act Aer 2 Puff INH Q4-6H PRN 108 mcg/actuation Review of Systems Except as stated in HPI: all other systems reviewed are Neg General / Constitutional: Positive: Chills, No: Fever HENT: Positive: Headaches, Lightheadedness Cardiovascular: No: Chest Pain or Discomfort Respiratory: No: Shortness of Breath Gastrointestinal: Positive: Nausea, Abdominal Pain (left lower quadrant, left flank), Loss of Appetite, No: Vomiting, Diarrhea Genitourinary: No: Dysuria, Discharge, Vaginal Bleeding Neurologic: Positive: Weakness Physical Exam Narrative GENERAL: Thin, well-developed, alert female. Appears uncomfortable, mother bedside. SKIN: Focused skin assessment warm/dry. There are incision sites to right and left lower quadrants and umbilicus. No erythema, exudates noted. HEAD: Atraumatic. Normocephalic. EYES: Pupils equal and round. No scleral icterus. No injection or drainage. ENT: No nasal bleeding or discharge. Mucous membranes pink and moist. NECK: Trachea midline. No JVD. CARDIOVASCULAR: Regular rate and rhythm. No murmur appreciated. RESPIRATORY: No accessory muscle use. Clear to auscultation. Breath sounds equal bilaterally. GASTROINTESTINAL: Abdomen soft, significantly tender to palpation in left lower quadrant and left flank area and positive guarding, no rebound. Positive bowel sounds. No CVAT bilaterally. MUSCULOSKELETAL: No obvious deformities. No clubbing. No cyanosis. No edema. NEUROLOGICAL: Awake and alert. No obvious cranial nerve deficits. Motor grossly within normal limits. Normal speech. PSYCHIATRIC: Appropriate mood and affect; insight and judgment normal. Data Data Last Documented VS Vital Signs Date Time Temp Pulse Resp B/P Pulse Ox O2 Delivery O2 Flow Rate FiO2 07/21/16 12:15 18 07/21/16 12:13 100 Room Air 07/21/16 10:01 98.6 106 106/59 Orders Beta Hcg (Quant/Titer) (07/21/16 10:51) Complete Blood Count With Diff (07/21/16 10:51) Comprehensive Metabolic Panel (07/21/16 10:51) Lactic Acid (07/21/16 10:51) Prothrombin Time / Inr (Pt) (07/21/16 10:51) Act Partial Throm Time (Ptt) (07/21/16 10:51) Urinalysis - C+S If Indicated (07/21/16 10:51) Ct Abd/Pel W Iv Contrast(Rout) (07/21/16 10:51) Iv Access Insert/Monitor (07/21/16 10:51) Ecg Monitoring (07/21/16 10:51) Oximetry (07/21/16 10:51) NPO (07/21/16 10:51) Ondansetron Inj (Zofran Inj) (07/21/16 11:00) Sodium Chlor 0.9% 1000 Ml Inj (Ns 1000 M (07/21/16 10:51) Sodium Chloride 0.9% Flush (Ns Flush) (07/21/16 11:00) Morphine Inj (Morphine Inj) (07/21/16 11:45) Urine Culture (07/21/16 11:30) Iohexol 350 Inj (Omnipaque 350 Inj) (07/21/16 12:39) Labs Laboratory Tests Test 07/21/16 07/21/16 11:20 11:30 White Blood Count 11.1 TH/MM3 Red Blood Count 3.01 MIL/MM3 Hemoglobin 9.0 GM/DL Hematocrit 26.1 % Mean Corpuscular Volume 86.6 FL Mean Corpuscular Hemoglobin 29.8 PG Mean Corpuscular Hemoglobin 34.5 % Concent Red Cell Distribution Width 13.9 % Platelet Count 342 TH/MM3 Mean Platelet Volume 8.3 FL Neutrophils (%) (Auto) 83.4 % Lymphocytes (%) (Auto) 10.5 % Monocytes (%) (Auto) 5.8 % Eosinophils (%) (Auto) 0.2 % Basophils (%) (Auto) 0.1 % Neutrophils # (Auto) 9.2 TH/MM3 Lymphocytes # (Auto) 1.2 TH/MM3 Monocytes # (Auto) 0.6 TH/MM3 Eosinophils # (Auto) 0.0 TH/MM3 Basophils # (Auto) 0.0 TH/MM3 CBC Comment DIFF FINAL Differential Comment Prothrombin Time 11.4 SEC Prothromb Time International 1.0 RATIO Ratio Activated Partial 25.0 SEC Thromboplast Time Sodium Level 137 MEQ/L Potassium Level 4.1 MEQ/L Chloride Level 103 MEQ/L Carbon Dioxide Level 25.5 MEQ/L Anion Gap 9 MEQ/L Blood Urea Nitrogen 13 MG/DL Creatinine 0.76 MG/DL Estimat Glomerular Filtration 117 ML/MIN Rate Random Glucose 93 MG/DL Lactic Acid Level 1.5 mmol/L Calcium Level 8.7 MG/DL Total Bilirubin 0.6 MG/DL Aspartate Amino Transf 16 U/L (AST/SGOT) Alanine Aminotransferase 22 U/L (ALT/SGPT) Alkaline Phosphatase 51 U/L Total Protein 6.9 GM/DL Albumin 3.3 GM/DL Human Chorionic Gonadotropin, 261 MIU/ML Quant Urine Color YELLOW Urine Turbidity HAZY Urine pH 6.0 Urine Specific [place] 1.030 Urine Protein 30 mg/dL Urine Glucose (UA) NEG mg/dL Urine Ketones 40 mg/dL Urine Occult Blood NEG Urine Nitrite NEG Urine Bilirubin NEG Urine Urobilinogen LESS THAN 2.0 MG/DL Urine Leukocyte Esterase SMALL Urine RBC 1 /hpf Urine WBC 5 /hpf Urine Squamous Epithelial 14 /hpf Cells Urine Bacteria MOD /hpf Urine Hyaline Casts 2 /lpf Urine Mucus MANY /lpf Microscopic Urinalysis Comment CULTURE INDICATED MDM Medical Decision Making Medical Screen Exam Complete: Yes Emergency Medical Condition: Yes Interpretation(s) Last Impressions Abdomen/Pelvis CT 07/21/16 1051 Signed Impressions: Service Date/Time: Thursday, July 21, 2016 12:16 - CONCLUSION: 1. A small amount of free fluid in the pelvis is noted. The study is otherwise unremarkable. Niko Lee MD Laboratory Tests Test 07/21/16 07/21/16 11:20 11:30 White Blood Count 11.1 TH/MM3 Red Blood Count 3.01 MIL/MM3 Hemoglobin 9.0 GM/DL Hematocrit 26.1 % Mean Corpuscular Volume 86.6 FL Mean Corpuscular Hemoglobin 29.8 PG Mean Corpuscular Hemoglobin 34.5 % Concent Red Cell Distribution Width 13.9 % Platelet Count 342 TH/MM3 Mean Platelet Volume 8.3 FL Neutrophils (%) (Auto) 83.4 % Lymphocytes (%) (Auto) 10.5 % Monocytes (%) (Auto) 5.8 % Eosinophils (%) (Auto) 0.2 % Basophils (%) (Auto) 0.1 % Neutrophils # (Auto) 9.2 TH/MM3 Lymphocytes # (Auto) 1.2 TH/MM3 Monocytes # (Auto) 0.6 TH/MM3 Eosinophils # (Auto) 0.0 TH/MM3 Basophils # (Auto) 0.0 TH/MM3 CBC Comment DIFF FINAL Differential Comment Prothrombin Time 11.4 SEC Prothromb Time International 1.0 RATIO Ratio Activated Partial 25.0 SEC Thromboplast Time Sodium Level 137 MEQ/L Potassium Level 4.1 MEQ/L Chloride Level 103 MEQ/L Carbon Dioxide Level 25.5 MEQ/L Anion Gap 9 MEQ/L Blood Urea Nitrogen 13 MG/DL Creatinine 0.76 MG/DL Estimat Glomerular Filtration 117 ML/MIN Rate Random Glucose 93 MG/DL Lactic Acid Level 1.5 mmol/L Calcium Level 8.7 MG/DL Total Bilirubin 0.6 MG/DL Aspartate Amino Transf 16 U/L (AST/SGOT) Alanine Aminotransferase 22 U/L (ALT/SGPT) Alkaline Phosphatase 51 U/L Total Protein 6.9 GM/DL Albumin 3.3 GM/DL Human Chorionic Gonadotropin, 261 MIU/ML Quant Urine Color YELLOW Urine Turbidity HAZY Urine pH 6.0 Urine Specific [place] 1.030 Urine Protein 30 mg/dL Urine Glucose (UA) NEG mg/dL Urine Ketones 40 mg/dL Urine Occult Blood NEG Urine Nitrite NEG Urine Bilirubin NEG Urine Urobilinogen LESS THAN 2.0 MG/DL Urine Leukocyte Esterase SMALL Urine RBC 1 /hpf Urine WBC 5 /hpf Urine Squamous Epithelial 14 /hpf Cells Urine Bacteria MOD /hpf Urine Hyaline Casts 2 /lpf Urine Mucus MANY /lpf Microscopic Urinalysis Comment CULTURE INDICATED Vital Signs Date Time Temp Pulse Resp B/P Pulse Ox O2 Delivery O2 Flow Rate FiO2 07/21/16 10:01 98.6 106 20 106/59 100 Room Air Differential Diagnosis Peritonitis versus UTI versus obstruction versus endometritis versus other Narrative Course Patient is a 21-year-old female presenting to emergency department for evaluation of left lower quadrant abdominal pain radiating to the left flank. She is status post right oophorectomy secondary to a ruptured ectopic . Patient was mildly tachycardic on arrival, likely secondary to pain. Labs and imaging ordered and pending. Mother at bedside. CBC with a white count 11.1, this is improved from for 8 when her white count was greater than 25 Chemistry is unremarkable, lactic acid is 1.5, hCG is 261 Coags are unremarkable Urinalysis with moderate bacteria, many mucus, small leukocyte esterase, and ketones, reflex culture pending. Patient reassessed, she appears to be resting more comfortably than she was on arrival. Discussed patient's labs, imaging and presentation with my attending physician. Diagnosis Primary Impression: Post-op pain Referrals: Elaine Dale MD CALL FOR APPT Patient Instructions: Abdominal Pain (ED), Constipation (ED), General Instructions, Narcotic given in the ED Additional Instructions: Follow-up with Dr. Dale as scheduled Increase fluid intake Activity per Dr. Dale Return to emergency department for any new or worsening symptoms Med/Other Pt SpecificInfo: Prescription(s) given Scripts Docusate Sodium (Colace)100 Mg Mlq005 Mg PO BID PRN (Constipation) #60 CAP Ref 0 Prov:Aranza Washington 07/21/16 Polyethylene Glycol 3350 Powder (Miralax Powder)17 Gm Powd17 Gm PO DAILY #1 BOTTLE Ref 0 Mix and dissolve one measuring cap-ful (17 grams) in water or juice. Prov:Aranza Washington 07/21/16 Disposition: 01 DISCHARGE HOME Condition: Stable Aranza Washington Jul 21, 2016 11:01
[2016-07-21 11:44] LABS: AUTOMATED NEUTROPHIL # 9.2 TH/MM3 (1.8-7.7); BASOPHIL % 0.1 % (0.0-2.0); EOSINOPHIL % 0.2 % (0.0-4.0); HEMATOCRIT 26.1 % (35.0-46.0); HEMO FLAGS DIFF FINAL; LYMPH % 10.5 % (9.0-44.0); LYMPHOCYTE # 1.2 TH/MM3 (1.0-4.8); MEAN CELL VOLUME 86.6 FL (80.0-100.0); MEAN CORPUSCULAR HEMOGLOBIN 29.8 PG (27.0-34.0); MEAN CORPUSCULAR HGB CONC 34.5 % (32.0-36.0); MONO % 5.8 % (0.0-8.0); NEUT % 83.4 % (16.0-70.0); PLATELET COUNT 342 TH/MM3 (150-450); RED BLOOD COUNT 3.01 MIL/MM3 (4.00-5.30); RED CELL DISTRIBUTION WIDTH 13.9 % (11.6-17.2); WHITE BLOOD COUNT 11.1 TH/MM3 (4.0-11.0)
[2016-07-21] MEDS ORDERED: MORPHINE SULFATE 4 MG/ML INJ IV PUSH ONE (11:45)
[2016-07-21 11:47] LABS: BACTERIA, URINE MOD /hpf; BLOOD, URINE NEG (NEG); GLUCOSE,URINE NEG (NEG); HYALINE CAST, URINE 2 /lpf (RARE); KETONE, URINE 40 mg/dL (NEG); MUCUS URINE MANY /lpf (OCC); NITRITE,URINE NEG (NEG); SQUAMOUS EPITHELIAL CELL URINE 14 /hpf (0-5); URINE COLOR YELLOW (YELLW/STRAW)
[2016-07-21 11:48] LABS: COMMENT (UR) CULTURE INDICATED; CULTURE IF INDICATED CULTURE INDICATED
[2016-07-21 11:54] LABS: PROTHROMBIN TIME - PATIENT 11.4 SEC (9.8-11.6)
[2016-07-21 12:11] LABS: ALT (GPT) 22 U/L (9-42); ANION GAP 9 MEQ/L (5-15); AST (GOT) 16 U/L (16-38); BICARBONATE 25.5 MEQ/L (21.0-32.0); BLOOD UREA NITROGEN 13 MG/DL (7-18); CHLORIDE 103 MEQ/L (98-107); GLOMERULAR FILTRATION RATE 117 ML/MIN (>89); POTASSIUM 4.1 MEQ/L (3.5-5.1); SODIUM (NA) 137 MEQ/L (136-145)
[2016-07-21 12:13] VITALS: O2SAT 100
[2016-07-21 12:15] VITALS: RESP 18
[2016-07-21 12:15] LABS: ALKALINE PHOSPHATASE 51 U/L (45-117); BETA HCG QUANT 261 MIU/ML (0-5); TOTAL BILIRUBIN ADULT 0.6 MG/DL (0.2-1.0)
[2016-07-21] MEDS ORDERED: IOHEXOL 350 MG/ML 10 ML VIAL (for RAD DIAG) IV ONE (12:39)
--- NOTE | 2016-07-21 12:46 | RADRPT ---
EXAM DATE/TIME: 07/21/2016 12:16 [place] COMPARISON: US PELVIS (QUEST PREG/ECTOPIC) W/TRANSVAG, July 15, 2016, 10:41. INDICATIONS : Left lower quadrant pain; status post right oophorectomy. IV CONTRAST: 85 cc Omnipaque 350 (iohexol) IV ORAL CONTRAST: No oral contrast ingested. RADIATION DOSE: 10.69 CTDIvol (mGy) MEDICAL HISTORY : Ectopic , Asthma. SURGICAL HISTORY : Right oophorectomy. ENCOUNTER: Initial ACUITY: 4 - 6 days PAIN SCALE: 8/10 LOCATION: Right lower quadrant TECHNIQUE: Volumetric scanning of the abdomen and pelvis was performed. Using automated exposure control and ad justment of the mA and/or kV according to patient size, radiation dose was kept as low as reasonably achievable to obtain optimal diagnostic quality images. FINDINGS: No pleural or pericardial effusions. Liver, gallbladder, kidneys, spleen, pancreas, adrenal glands, s mall bowel large bowel are unremarkable. There is a small amount of free fluid in the cul-de-sac. [place] yusuf and left ovary unremarkable. There no concerning pelvic masses. Bladder unremarkable. Small amoun t of free fluid anterior to the uterus and in the right hemipelvis. There is no free air. Lung bases are clear. Osseous structures are intact. A CONCLUSION: 1. A small amount of free fluid in the pelvis is noted. The study is otherwise unremarkable. Niko Lee MD on July 21, 2016 at 12:42 Board Certified Radiologist. This report was verified electronically.
[2016-07-21] MEDS ORDERED: KETOROLAC TROMETHAMINE 30 MG/ML (IVP) VIAL IVP ONE (13:45)
[2016-07-21] MEDS ORDERED: COLA100C3 PO (13:49)
[2016-07-21] MEDS ORDERED: MIRA33504 PO (13:49)
--- NOTE | 2016-07-21 13:59 | PD ---
Data Data Last Documented VS Vital Signs Date Time Temp Pulse Resp B/P Pulse Ox O2 Delivery O2 Flow Rate FiO2 07/21/16 12:15 18 07/21/16 12:13 100 Room Air 07/21/16 10:01 98.6 106 106/59 Orders Beta Hcg (Quant/Titer) (07/21/16 10:51) Complete Blood Count With Diff (07/21/16 10:51) Comprehensive Metabolic Panel (07/21/16 10:51) Lactic Acid (07/21/16 10:51) Prothrombin Time / Inr (Pt) (07/21/16 10:51) Act Partial Throm Time (Ptt) (07/21/16 10:51) Urinalysis - C+S If Indicated (07/21/16 10:51) Ct Abd/Pel W Iv Contrast(Rout) (07/21/16 10:51) Iv Access Insert/Monitor (07/21/16 10:51) Ecg Monitoring (07/21/16 10:51) Oximetry (07/21/16 10:51) NPO (07/21/16 10:51) Ondansetron Inj (Zofran Inj) (07/21/16 11:00) Sodium Chlor 0.9% 1000 Ml Inj (Ns 1000 M (07/21/16 10:51) Sodium Chloride 0.9% Flush (Ns Flush) (07/21/16 11:00) Morphine Inj (Morphine Inj) (07/21/16 11:45) Urine Culture (07/21/16 11:30) Iohexol 350 Inj (Omnipaque 350 Inj) (07/21/16 12:39) Ketorolac Inj (Toradol Inj) (07/21/16 13:45) Labs Laboratory Tests Test 07/21/16 07/21/16 11:20 11:30 White Blood Count 11.1 TH/MM3 Red Blood Count 3.01 MIL/MM3 Hemoglobin 9.0 GM/DL Hematocrit 26.1 % Mean Corpuscular Volume 86.6 FL Mean Corpuscular Hemoglobin 29.8 PG Mean Corpuscular Hemoglobin 34.5 % Concent Red Cell Distribution Width 13.9 % Platelet Count 342 TH/MM3 Mean Platelet Volume 8.3 FL Neutrophils (%) (Auto) 83.4 % Lymphocytes (%) (Auto) 10.5 % Monocytes (%) (Auto) 5.8 % Eosinophils (%) (Auto) 0.2 % Basophils (%) (Auto) 0.1 % Neutrophils # (Auto) 9.2 TH/MM3 Lymphocytes # (Auto) 1.2 TH/MM3 Monocytes # (Auto) 0.6 TH/MM3 Eosinophils # (Auto) 0.0 TH/MM3 Basophils # (Auto) 0.0 TH/MM3 CBC Comment DIFF FINAL Differential Comment Prothrombin Time 11.4 SEC Prothromb Time International 1.0 RATIO Ratio Activated Partial 25.0 SEC Thromboplast Time Sodium Level 137 MEQ/L Potassium Level 4.1 MEQ/L Chloride Level 103 MEQ/L Carbon Dioxide Level 25.5 MEQ/L Anion Gap 9 MEQ/L Blood Urea Nitrogen 13 MG/DL Creatinine 0.76 MG/DL Estimat Glomerular Filtration 117 ML/MIN Rate Random Glucose 93 MG/DL Lactic Acid Level 1.5 mmol/L Calcium Level 8.7 MG/DL Total Bilirubin 0.6 MG/DL Aspartate Amino Transf 16 U/L (AST/SGOT) Alanine Aminotransferase 22 U/L (ALT/SGPT) Alkaline Phosphatase 51 U/L Total Protein 6.9 GM/DL Albumin 3.3 GM/DL Human Chorionic Gonadotropin, 261 MIU/ML Quant Urine Color YELLOW Urine Turbidity HAZY Urine pH 6.0 Urine Specific [place] 1.030 Urine Protein 30 mg/dL Urine Glucose (UA) NEG mg/dL Urine Ketones 40 mg/dL Urine Occult Blood NEG Urine Nitrite NEG Urine Bilirubin NEG Urine Urobilinogen LESS THAN 2.0 MG/DL Urine Leukocyte Esterase SMALL Urine RBC 1 /hpf Urine WBC 5 /hpf Urine Squamous Epithelial 14 /hpf Cells Urine Bacteria MOD /hpf Urine Hyaline Casts 2 /lpf Urine Mucus MANY /lpf Microscopic Urinalysis Comment CULTURE INDICATED MDM Supervised Visit with JOSE: Yes Narrative Course The history, exam, and medical decision-making in the associated midlevel provider note were completed with my assistance. I reviewed and agree with the findings presented. I attest that I had a [id number] encounter with the patient on the same day, and personally performed and documented my assessment and findings in the medical record. *My assessment and Findings: This is a 21-year-old female who recently had surgery in the setting of ruptured ectopic who presents the emergency department with persistent left-sided abdominal pain. Labs are obtained which were reassuring. A CT scan was obtained given the patient's amount of tenderness which was reassuring. I suspect the patient has normal postoperative pain following laparoscopic surgery. 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 Dale as scheduled Increase fluid intake Activity per Dr. Dale Return to emergency department for any new or worsening symptoms Scripts Docusate Sodium (Colace)100 Mg Gla231 Mg PO BID PRN (Constipation) #60 CAP Ref 0 Prov:Aranza Washington 07/21/16 Polyethylene Glycol 3350 Powder (Miralax Powder)17 Gm Powd17 Gm PO DAILY #1 BOTTLE Ref 0 Mix and dissolve one measuring cap-ful (17 grams) in water or juice. Prov:Aranza Washington 07/21/16 Disposition: 01 DISCHARGE HOME Condition: Stable Kate Hurst MD Jul 21, 2016 13:59
== END 2016-07-21 14:25 | disposition home or self-care (01) ==
LOC: NEPD 09:59
DX: G89.18 Other acute postprocedural pain (principal); J45.909 Unspecified asthma, uncomplicated
CPT/HCPCS: 74177; 80053; 81001; 83605; 84702; 85025; 85610; 85730; 87086; 96361; 96374; 96375; 99284; J1885; J2270; J2405; J7030; Q9967